=== PATIENT | male | born 1985 | race Caucasian/White ===

== ENCOUNTER 2025-08-03 12:58 | Outpatient (RCR) | payer OTHER, SELFPAY | END 2025-08-03 23:59 | disposition home or self-care (01) | LOC: RPT 12:58 | PROVIDERS: ATTENDING PHYSICIAN Internal Medicine | DX: M25.511 Pain in right shoulder (principal); M25.512 Pain in left shoulder; M79.604 Pain in right leg; Z73.6 Limitation of activities due to disability; R20.2 Paresthesia of skin | CPT/HCPCS: 97110; 97162 ==